=== PATIENT | female | born 2000 | race Two or more races ===

== ENCOUNTER 2025-01-24 12:34 | Emergency (ER) | payer MEDICAID, SELFPAY ==
[2025-01-24 12:35] VITALS: BMI 26.4
[2025-01-24 12:42] VITALS: BP 115/82; PULSE 94; RESP 19; TEMP 36.8; O2SAT 99
--- NOTE | 2025-01-24 13:00 | PD.EDSKIN ---
ED Skin Abcess FB-RME/HPI General Chief complaint: Skin/Abscess/Foreign Body Stated complaint: BLISTER RIGHT HIP x 2 DAYS Time Seen by Provider: 01/24/25 12:59 Arrival date/time: 01/24/25 12:34 24-year-old female presents to the emerged from today for complaints of blister to right upper thigh patient for symptom onset 2 days ago reports no fever nausea or vomiting Limitations: no limitations Related Data Previous Rx's ?Medication ?Instructions ?Recorded metformin 500 mg tablet 500 mg PO BID #60 tabs 09/16/20 ibuprofen 800 mg tablet 800 mg PO TID PRN pain #30 tabs 06/02/23 clindamycin HCl 150 mg capsule 450 mg (3 x 150 mg) PO TID 7 days 01/24/25 #63 caps ibuprofen 600 mg tablet 600 mg PO Q6H #30 tabs 01/24/25 Allergies Allergy/AdvReac Type Severity Reaction Status Date / Time No Known Allergies Allergy Verified 01/25/25 11:29 Review of Systems Review of Systems Systems Reviewed: All systems reviewed, normal except as documented Constitutional Constitutional: Reports system reviewed and no additional complaints, except as documented, Denies fever(s) and Denies headache(s) Eyes Eyes: Reports system reviewed and no additional complaints, except as documented and Denies blurry vision ENT Ears, Nose, Mouth, and Throat: Reports system reviewed and no additional complaints, except as documented, Denies headache(s), Denies nasal congestion and Denies nasal discharge Cardiovascular Cardiovascular: Reports system reviewed and no additional complaints, except as documented, Denies chest pain and Denies dyspnea Respiratory Respiratory: Reports system reviewed and no additional complaints, except as documented, Denies chest congestion, Denies cough and Denies dyspnea Gastrointestinal Gastrointestinal: Reports system reviewed and no additional complaints, except as documented and Denies abdominal pain Integumentary/Breasts Skin/Breast: Reports system reviewed and no additional complaints, except as documented, Denies rash and Reports other (Abscess right upper leg) Neurologic Neurologic: Reports system reviewed and no additional complaints, except as documented, Reports as per HPI and Denies headache(s) Past Medical History Past Medical History NEUROLOGIC: Negative Amyotrophic Lateral Sclerosis (ALS/Jeanette Gehrig's) CARDIAC: Negative Cardiac Disorders or Congestive Heart Failure RESPIRATORY: Positive Asthma; Negative Chronic Obstructive Pulmonary Disease (COPD) GENITOURINARY: Negative Renal Disease ENDOCRINE: Positive Diabetes Mellitus Type 2; Negative Diabetes Mellitus Type 1 HEMATOLOGIC: Negative Sickle Cell Disease PSYCHO/SOCIAL: Positive Anxiety Social History SMOKING STATUS: Current every day smoker ED Exam General Limitations: Present no limitations General appearance: Present alert and in no apparent distress Head Head exam: Present atraumatic Eye Eye exam: Present normal appearance, PERRL and EOMI ENT ENT exam: Present normal exam, normal oropharynx and mucous membranes moist Neck Neck exam: Present normal inspection, full ROM and trachea midline Chest Chest inspection: Present normal inspection and symmetric chest wall rise Respiratory Respiratory exam: Present normal lung sounds bilaterally Cardiovascular Cardiovascular exam: Present regular rate, normal rhythm and normal heart sounds Abdominal Exam Abdominal exam: Present soft and normal bowel sounds Extremities Exam Extremities exam: Present normal inspection and full ROM Back Exam Back exam: Present normal inspection and full ROM Neurological Exam Neurological exam: Present alert, oriented X3 and CN II-XII intact Psychiatric Psychiatric exam: Present normal affect and normal mood Skin Skin exam: Present warm, dry and other (Abscess right upper leg) Course Quality Measures none Orders Category Date Time Status Ibuprofen Tab [Motrin Tab] Med 01/24/25 13:27 Discontinued 600 mg PO X1 ONE Lidocaine 1% 20 ml [Xylocaine 1% 20 ML] Med 01/24/25 13:27 Discontinued 2.1 ml INFL X1 ONE cefTRIAXone [Rocephin] Med 01/24/25 13:27 Discontinued 1,000 mg IM X1 ONE Vital Signs Vital signs: Vital Signs Temperature 98.2 F 01/24/25 12:42 Pulse Rate 94 01/24/25 12:42 Respiratory Rate 19 01/24/25 12:42 Blood Pressure 115/82 01/24/25 12:42 Pulse Oximetry (%) 99 01/24/25 12:42 Oxygen Delivery Method Room Air 01/24/25 12:42 O2 saturation 99% room air within normal limits Skin / Abscess / Foreign Body MDM Narrative MDM Narrative:: 24-year-old female presents to the emergency department today for complaints of blister to right upper thigh patient for symptom onset 2 days ago reports no fever nausea or vomiting On exam patient has swelling right upper leg consistent with abscess the abscess is hard and nothing to drain at this time Patient given a course of antibiotics instructed the patient to return in 2 days for reevaluation and possible I&D At this time patient given Rocephin and ibuprofen Patient discharged home in no distress to follow-up with primary care doctor in the next 24 to 48 hours and for any worsening symptoms to return to the ER immediately Patient data External records reviewed:: [facility] previous records Clinical information provided by:: patient Social determinants that could affect healthcare access:: none Patient has the following chronic illnesses:: See history How is presenting disease/condition affected by chronic disease/condition?: exacerbated by Evaluation data The following diagnostics were reviewed and interpreted by me:: other (specify) Lab and/or radiology exams considered but not ordered:: Considered not indicated Interpretation Summary: N/A Medications / Prescriptions Medications or Prescriptions considered but not ordered:: Given Medication administrations:: Medication Administration History Discontinued Medications Ceftriaxone Sodium (Ceftriaxone Sod Inj 1,000 Mg Vial) 1,000 mg IM X1 ONE Stop: 01/24/25 13:28 Last Admin: 01/24/25 13:55 Dose: 1,000 mg Documented By: Ibuprofen (Ibuprofen Tab 600 Mg Tablet) 600 mg PO X1 ONE Stop: 01/24/25 13:28 Last Admin: 01/24/25 13:56 Dose: 600 mg Documented By: Lidocaine HCl (Lidocaine Hcl 1% 20 Ml Vial) 2.1 ml INFL X1 ONE Stop: 01/24/25 13:28 Last Admin: 01/24/25 13:56 Dose: 2.1 ml Documented By: Given Consultations Consultation(s) initiated? (list below): No Diagnosis Skin/Abscess Differential Diagnosis: abscess of skin or subcutaneous tissue and cellulitis Most likely diagnosis given after review of the tests above:: Abscess right upper leg Admission Indicated Admission indicated?: not indicated Admission Request Was there a request for admission?: No Disposition Plan Disposition Plan: Discharge Discharge Attestation Discharge Attestation: The patient and all family members were given an opportunity to ask questions and understood the discharge instructions. Discharge instructions specifically effects, indications for sooner follow up or return to the emergency department, and the expected course of current diagnosis. Patient condition: Stable Discharge Plan Plan Patient Disposition: HOME (Self Care) Discharge Disposition comment: Stable Prescriptions/Referrals Prescriptions/Med Rec: New clindamycin HCl 150 mg capsule 450 mg PO TID 7 Days Qty: 63 0RF ibuprofen 600 mg tablet 600 mg PO Q6H Qty: 30 0RF No Action metformin 500 mg tablet 500 mg PO BID Qty: 60 0RF ibuprofen 800 mg tablet 800 mg PO TID PRN (Reason: pain) Qty: 30 0RF Problem List Clinical Impression: Abscess of right thigh Patient/Caregiver Discharge Instructions Education Materials: ED Abscess Antibiotic ... Additional Instructions: Please return 2- 3 days reevaluation for worsening symptoms or concerns return immediately Print Language: Greek Stand Alone Forms: Karla Award Info., Work/School Release, Patient Portal Info Letter PA/COMPENSATION SUPERVISOR Supervising Physician PA/COMPENSATION SUPERVISOR Supervising Physician: dr carrasquillo
[2025-01-24] MEDS: cefTRIAXone SOD INJ 1,000 MG VIAL 1000 MG IM (13:55)
[2025-01-24] MEDS: IBUPROFEN TAB 600 MG TABLET PO (13:56)
[2025-01-24] MEDS: LIDOCAINE HCL 1% 20 ML VIAL 2.1 ML INFL (13:56)
== END 2025-01-24 14:30 | disposition home or self-care (01) ==
PROVIDERS: Emergency Provider Nurse Practitioner Primary Care; PCP Physician Assistant
DX: L02.415 Cutaneous abscess of right lower limb (principal)
CPT/HCPCS: 96372; 99282; J0696; J3490; A9270

== ENCOUNTER 2025-01-25 11:27 | Emergency (ER) | payer MEDICAID, SELFPAY ==
[2025-01-25 11:28] VITALS: BMI 26.4
[2025-01-25 11:43] VITALS: BP 128/74; PULSE 88; RESP 18; TEMP 36.9; O2SAT 99
--- NOTE | 2025-01-25 12:04 | PD.EDWOUND ---
ED Wound/Laceration-RME/HPI General Chief Complaint: Wound Recheck / Suture Removal Stated Complaint: BLISTER ON RIGHT THIGH, SEEN YESTERDAY Time Seen by Provider: 01/25/25 11:39 Source: patient Arrival date/time: 01/25/25 11:27 24-year-old female with no known medical history presents to the emergency room with a chief complaint of an abscess to her right thigh x 4 days Mode of arrival: ambulatory Limitations: no limitations Related Data Previous Rx's ?Medication ?Instructions ?Recorded metformin 500 mg tablet 500 mg PO BID #60 tabs 09/16/20 ibuprofen 800 mg tablet 800 mg PO TID PRN pain #30 tabs 06/02/23 clindamycin HCl 150 mg capsule 450 mg (3 x 150 mg) PO TID 7 days 01/24/25 #63 caps ibuprofen 600 mg tablet 600 mg PO Q6H #30 tabs 01/24/25 Allergies Allergy/AdvReac Type Severity Reaction Status Date / Time No Known Allergies Allergy Verified 01/25/25 11:29 Review of Systems Review of Systems Systems Reviewed: All systems reviewed, normal except as documented Constitutional Constitutional: Reports system reviewed and no additional complaints, except as documented, Denies fatigue, Denies fever(s), Denies headache(s) and Denies weakness Eyes Eyes: Reports system reviewed and no additional complaints, except as documented, Denies blurry vision and Denies change in vision ENT Ears, Nose, Mouth, and Throat: Reports system reviewed and no additional complaints, except as documented, Denies otalgia, Denies headache(s), Denies nasal congestion, Denies throat swelling and Denies vertigo Cardiovascular Cardiovascular: Reports system reviewed and no additional complaints, except as documented, Denies chest pain, Denies dyspnea and Denies dyspnea on exertion Respiratory Respiratory: Reports system reviewed and no additional complaints, except as documented, Denies chest congestion, Denies cough, Denies dyspnea, Denies dyspnea on exertion and Denies wheezing Gastrointestinal Gastrointestinal: Reports system reviewed and no additional complaints, except as documented, Denies abdominal pain, Denies cramping, Denies nausea and Denies vomiting Genitourinary Genitourinary: Reports system reviewed and no additional complaints, except as documented Musculoskeletal Musculoskeletal: Reports system reviewed and no additional complaints, except as documented and Denies back pain Integumentary/Breasts Skin/Breast: Reports system reviewed and no additional complaints, except as documented and Reports wounds Neurologic Neurologic: Reports system reviewed and no additional complaints, except as documented, Denies confusion, Denies headache(s), Denies lack of coordination, Denies vertigo and Denies weakness Psychiatric Psychiatric: Reports system reviewed and no additional complaints, except as documented, Denies anxiety, Denies confusion, Denies depression, Denies paranoia, Denies suicidal ideation and Denies tactile hallucinations Endocrine Endocrine: Reports system reviewed and no additional complaints, except as documented and Denies fatigue Hematologic/Lymphatic Hematologic/Lymphatic: Reports system reviewed and no additional complaints, except as documented and Denies lymphadenopathy Allergic/Immunologic Allergic/Immunologic: Reports system reviewed and no additional complaints, except as documented, Denies throat swelling, Denies urticaria and Denies wheezing Past Medical History Past Medical History NEUROLOGIC: Negative Amyotrophic Lateral Sclerosis (ALS/Jeanette Gehrig's) CARDIAC: Negative Cardiac Disorders or Congestive Heart Failure RESPIRATORY: Positive Asthma; Negative Chronic Obstructive Pulmonary Disease (COPD) GENITOURINARY: Negative Renal Disease ENDOCRINE: Positive Diabetes Mellitus Type 2; Negative Diabetes Mellitus Type 1 HEMATOLOGIC: Negative Sickle Cell Disease PSYCHO/SOCIAL: Positive Anxiety Social History SMOKING STATUS: Current every day smoker ED Exam General Limitations: Present no limitations General appearance: Present alert and in no apparent distress Head Head exam: Present atraumatic Eye Eye exam: Present normal appearance, PERRL and EOMI ENT ENT exam: Present normal exam, normal oropharynx and mucous membranes moist Neck Neck exam: Present normal inspection, full ROM and trachea midline Chest Chest inspection: Present normal inspection and symmetric chest wall rise Respiratory Respiratory exam: Present normal lung sounds bilaterally Cardiovascular Cardiovascular exam: Present regular rate, normal rhythm and normal heart sounds Abdominal Exam Abdominal exam: Present soft and normal bowel sounds Bimanual exam: Present other Genitals Female CloseUp:  1. Erythema, warmth, to the right thigh Extremities Exam Extremities exam: Present normal inspection and full ROM Back Exam Back exam: Present normal inspection and full ROM Neurological Exam Neurological exam: Present alert, oriented X3 and CN II-XII intact Psychiatric Psychiatric exam: Present normal affect and normal mood Skin Skin exam: Present warm, dry, intact and normal color Course Quality Measures none Orders Category Date Time Status Incision and Drainage Set Up X1 Care 01/25/25 11:59 Completed Set Up Suture Tray STAT Care 01/25/25 12:00 Completed Wound Care NOW Care 01/25/25 12:00 Completed Lidocaine 1% 20 ml [Xylocaine 1% 20 ML] Med 01/25/25 11:59 Discontinued 20 ml INFL X1 ONE Vital Signs Vital signs: Vital Signs Temperature 98.5 F 01/25/25 11:43 Pulse Rate 88 01/25/25 11:43 Respiratory Rate 18 01/25/25 11:43 Blood Pressure 128/74 01/25/25 11:43 Pulse Oximetry (%) 99 01/25/25 11:43 Oxygen Delivery Method Room Air 01/25/25 11:43 PROCEDURES: Abscess I/D Site: other (Right thigh) Side (if applicable): right Local Anesthetic: lidocaine 1% Amount of anesthesia used (mL): 5 Technique: incised with #11 blade Amount of fluid expressed (mL): 5 Irrigation: Yes Packing used?: none Wound / Laceration MDM Narrative MDM Narrative:: 24-year-old female with no known medical history presents to the emergency room with a chief complaint of an abscess to her right thigh x 4 days Patient is hemodynamically stable and in no apparent distress. The patient has an abscess to her right thigh there is erythemic, tender and ready to be drained. PROCEDURE: incision and drainage of abscess PROCEDURE: A timeout protocol was performed prior to initiating the procedure. The area was prepared with Betadine and draped in the usual, sterile manner. The site was anesthetized with 1% lidocaine. A linear incision along the local skin lines was made and the purulent material expressed. The abscess was explored thoroughly and sequestered pockets were opened. Bleeding was minimal. Packing: none Followup: The patient tolerated the procedure well without complications. Standard post-procedure care is explained and patient was educated to follow-up with his primary care provider in the next 24 to 48 hours or return to the emergency room for any evidence of worsening signs or symptoms. Patient data External records reviewed:: [facility] previous records Clinical information provided by:: patient Social determinants that could affect healthcare access:: none Patient has the following chronic illnesses:: No chronic illness How is presenting disease/condition affected by chronic disease/condition?: no chronic disease Evaluation data The following diagnostics were reviewed and interpreted by me:: lab results and radiology exam(s) Lab and/or radiology exams considered but not ordered:: Labs and radiology exams considered and ordered Interpretation Summary: N/A Medications / Prescriptions Medications or Prescriptions considered but not ordered:: Medication given Medication administrations:: Medication Administration History Discontinued Medications Lidocaine HCl (Lidocaine Hcl 1% 20 Ml Vial) 20 ml INFL X1 ONE Stop: 01/25/25 12:00 Last Admin: 01/25/25 12:50 Dose: 20 ml Documented By: CHIP Comments: USED BY PROVIDER Medication given Consultations Consultation(s) initiated? (list below): No Diagnosis Wound Differential Diagnosis: laceration, abscess and other (Incision and drainage/abscess of right thigh) Most likely diagnosis given after review of the tests above:: Abscess of right thigh Admission Indicated Admission indicated?: not indicated Admission Request Was there a request for admission?: No Disposition Plan Disposition Plan: Discharge Discharge Attestation Discharge Attestation: The patient and all family members were given an opportunity to ask questions and understood the discharge instructions. Discharge instructions specifically effects, indications for sooner follow up or return to the emergency department, and the expected course of current diagnosis. Patient condition: Stable Discharge Plan Plan Patient Disposition: HOME (Self Care) Discharge Disposition comment: Stable Prescriptions/Referrals Prescriptions/Med Rec: No Action metformin 500 mg tablet 500 mg PO BID Qty: 60 0RF clindamycin HCl 150 mg capsule 450 mg PO TID 7 Days Qty: 63 0RF ibuprofen 600 mg tablet 600 mg PO Q6H Qty: 30 0RF ibuprofen 800 mg tablet 800 mg PO TID PRN (Reason: pain) Qty: 30 0RF Problem List Clinical Impression: Abscess of right thigh Patient/Caregiver Discharge Instructions Education Materials: ED Abscess Antibiotic ..., ED Abscess, Incision And Drainage Additional Instructions: Please follow-up with your primary care provider in the next 24 to 48 hours Your abscess was drained. For any evidence of worsening signs or symptoms please return to the emergency room immediately Please continue to take the antibiotics that were prescribed by your primary care provider yesterday Patient was discharged and educated to follow-up with primary care provider in the next 24 to 48 hours and return to the emergency room for any evidence of worsening signs or symptoms Print Language: Divehi Stand Alone Forms: Karla Award Info., Patient Portal Info Letter PA/GUARD LIEUTENANT Supervising Physician PA/GUARD LIEUTENANT Supervising Physician: Dr. Carrion
[2025-01-25] MEDS: LIDOCAINE HCL 1% 20 ML VIAL INFL (12:50)
== END 2025-01-25 13:07 | disposition home or self-care (01) ==
LOC: SERX 13:04
PROVIDERS: Emergency Provider Nurse Practitioner Family
DX: L02.415 Cutaneous abscess of right lower limb (principal)
CPT/HCPCS: 10060; 99282; J3490

== ENCOUNTER 2025-01-30 23:18 | Emergency (ER) | payer MEDICAID, SELFPAY ==
[2025-01-30 23:19] VITALS: BMI 26.4
[2025-01-31 00:08] VITALS: BP 124/83; PULSE 98; RESP 18; TEMP 36.6; O2SAT 97
--- NOTE | 2025-01-31 00:25 | EDNOTE_ITS ---
ED Skin Abcess FB-RME/HPI General Chief complaint: Skin/Abscess/Foreign Body Stated complaint: BLISTERS AROUND BOIL SITE Time Seen by Provider: 01/31/25 00:23 Arrival date/time: 01/30/25 23:18 RME / HPI RME / HPI narrative: 24-year-old female with a past medical history of diabetes states she checked her sugar just prior to arrival and it was 122 who was seen here 7 days ago prescribed clindamycin and then 6 days ago and had an I&D performed patient states that she has 3 days left of her antibiotics and has only taken 4 days worth of it. Denies fever, abdominal pain, diarrhea, dysuria vomiting. Patient states that her redness, pain, swelling have improved and that her wound is still draining. Related Data Previous Rx's ?Medication ?Instructions ?Recorded metformin 500 mg tablet 500 mg PO BID #60 tabs 09/16 ibuprofen 800 mg tablet 800 mg PO TID PRN pain #30 t abs 06/02/23 ibuprofen 600 mg tablet 600 mg PO Q6H #30 tabs 01/24 Saccharomyces boulardii 250 mg 5,000 mmu cells PO QDAY #14 caps 01/31/25 capsule (Florastor) clindamycin HCl 300 mg capsule 300 mg PO TID #9 caps 1 04/02/24 (Cleocin HCl) clotrimazole-betamethasone 1 1 applic topical BID 2 we eks #30 mL 01/31/25 %-0.05 % lotion Allergies Allergy/AdvReac Type Severity Reaction Status Date / Time No Known Allergies Allergy Verified 01/30/25 23:18 ED Exam Narrative Physical exam: Constitutional: Vital Signs Reviewed. Well appearing. No acute distress. Not toxic appearing. Head: Normocephalic, atraumatic. Eyes: Conjunctiva clear. ENT: Mucous membranes moist. Neck: Trachea midline. Normal range of motion. No nuchal rigidity. Respiratory: Normal effort. No respiratory distress or accessory muscle use. Neuro: Alert and oriented. Speech normal. No focal gross motor or sensory deficits observed. Skin: Warm, dry, normal color. Extremity: Right inner groin with minimal tenderness, erythema, induration and a central wound which is actively draining serosanguinous drainage with pressure. Just distal to this patient does have scant erythematous papular rash. No crepitus, fluctuance. Psych: Pleasant. Normal affect. Cooperative. Course Course Course Narrative: Offered patient a repeat I&D and wound exploration for potential disruption of development of loculations however patient states that her symptoms have significantly improved and she would prefer to just continue with warm compresses, additionally no focal fluctuance and doubt additional loculation collection as patient states that her symptoms are improving. Patient presented mainly to the ER for her new rash which developed distally. I suspect that this rash may be tinea cruris versus contact dermatitis plan for Lotrimin cream, supportive treatment. Overall patient's previously drained abscess and cellulitis is improving however it may require an additional 2-3 days of treatment therefor I advised her to take probiotics and I will provide her with an additional rx and advised probiotics/prebiotics. This patient?s soft tissue infection and rash appears appropriate for outpatient management with close follow-up by a clinician within 48 hours. There are no signs of systemic toxicity, and a serious, rapidly progressive infection is unlikely based on presentation and exam. Doubt necrotizing fasciitis given lack of tenderness beyond erythema or crepitus, and doubt lymphangitis given lack of streaking. The patient has been instructed on signs of acute progression and to return immediately if symptoms worsen or change Quality Measures none Vital Signs Vital signs: Vital Signs Temperature 97.8 F 01/31/25 00:08 Pulse Rate 98 01/31/25 00:08 Respiratory Rate 18 01/31/25 00:08 Blood Pressure 124/83 01/31/25 00:08 Pulse Oximetry (%) 97 01/31/25 00:08 Oxygen Delivery Method Room Air 01/31/25 00:08 Skin / Abscess / Foreign Body Patient data External records reviewed:: [facility] previous records Clinical information provided by:: patient Social determinants that could affect healthcare access:: none Patient has the following chronic illnesses:: Diabetes How is presenting disease/condition affected by chronic disease/condition?: exacerbated by Evaluation data The following diagnostics were reviewed and interpreted by me:: other (specify) Lab and/or radiology exams considered but not ordered:: Additional Labs and radiology considered, but not ordered as they were not clinically indicated at this time. Interpretation Summary: None Medications / Prescriptions Medications or Prescriptions considered but not ordered:: I considered prescription management (both outpatient prescriptions AND drug treatment in the ER) and decided that this was necessary and was prescribed as charted. Medication administrations:: None Consultations Consultation(s) initiated? (list below): No Diagnosis Skin/Abscess Differential Diagnosis: dermatophytosis, cellulitis and contact dermatitis Most likely diagnosis given after review of the tests above:: Tinea cruris and improving cellulitis Admission Indicated Admission indicated?: not indicated Admission Request Was there a request for admission?: No Disposition Plan Disposition Plan: Discharge Discharge Attestation Discharge Attestation: The patient and all family members were given an opportunity to ask questions and understood the discharge instructions. Discharge instructions specifically effects, indications for sooner follow up or return to the emergency department, and the expected course of current diagnosis. Patient condition: Stable Discharge Plan Plan Patient Disposition: HOME (Self Care) Patient condition on transfer: Stable Prescriptions/Referrals Prescriptions/Med Rec: New clotrimazole-betamethasone 1-0.05 % lotion 1 applic topical BID 14 Days Qty: 30 0RF clindamycin HCl [Cleocin HCl] 300 mg capsule 300 mg PO TID Qty: 9 0RF Saccharomyces boulardii [Florastor] 250 mg capsule 5,000 mmu cells PO QDAY Qty: 14 0RF No Action metformin 500 mg tablet 500 mg PO BID Qty: 60 0RF ibuprofen 600 mg tablet 600 mg PO Q6H Qty: 30 0RF ibuprofen 800 mg tablet 800 mg PO TID PRN (Reason: pain) Qty: 30 0RF Problem List Clinical Impression: Rash, Abscess of right thigh Patient/Caregiver Discharge Instructions Education Materials: ED Abscess Antibiotic ..., Tinea Cruris General Additional Instructions: Follow up with your primary medical doctor within 48 hours. Return to the Emergency Room immediately for any new, worsening, continuing symptoms or any concerns at all. Return to the Emergency Room within 48 hours if you are unable to follow up with your primary medical doctor within 48 hours. Print Language: [place] Stand Alone Forms: Karla Award Info., Patient Portal Info Letter PA/MAJOR ACCOUNT MANAGER Supervising Physician PA/RAFAL Supervising Physician: Dr. Smith
== END 2025-01-31 00:58 | disposition home or self-care (01) ==
LOC: SERX 01-31 01:58
PROVIDERS: Emergency Provider Emergency Medicine; PCP Physician Assistant
DX: L02.415 Cutaneous abscess of right lower limb (principal); B35.6 Tinea cruris
CPT/HCPCS: 99281